=== PATIENT | female | born 1985 | race Asian ===

== ENCOUNTER → 2017-09-11 | Outpatient (CLI) | payer SELFPAY, OTHER | END | disposition home or self-care (01) | LOC: LAB 14:11 | DX: R50.9 Fever, unspecified (principal) | CPT/HCPCS: 87400 ==

== ENCOUNTER → 2017-09-27 | Outpatient (CLI) | payer BC | END | disposition home or self-care (01) | LOC: LAB 14:43 | DX: R50.9 Fever, unspecified (principal) | CPT/HCPCS: 87400 ==